=== PATIENT | female | born 1955 | race Two or more races ===

== ENCOUNTER 2017-08-23 07:25 | Inpatient (IN) | payer MEDICARE, OTHER ==
[~2017-08-23] VITALS: Ht 142.2 cm; Wt 58.5 kg
[2017-08-23 08:44] LABS: Urine Bacteria FEW /hpf (None Seen); Urine Blood Negative /uL (Negative); Urine Mucus FEW (None Seen); Urine Specific Gravity 1.022 (1.001-1.035); Urine WBC 4 /hpf (0 - 5)
[2017-08-23] MEDS ORDERED: MORPHINE SULFATE 10 MG/ML INJ 1ML SDV IV ONE (09:30)
[2017-08-23] MEDS ORDERED: ONDANSETRON HCL 4 MG/2 ML VIAL IV ONE (09:30)
[2017-08-23 09:50] LABS: Basophils # (auto) 0 uL; Hemoglobin 14.4 g/dL (12.2-16.2); Neutrophils # (auto) 7.4 uL; Red Cell Distribution Width 12.8 % (11.8-14.3)
[2017-08-23 09:52] LABS: Basophils % (auto) 0.3 % (0.0-2.0); Eosinophils # (auto) 0.1 uL; Eosinophils % (auto) 0.6 % (0.0-7.0); Hematocrit 41.7 % (36.0-46.0); Lymphocytes # (auto) 1.3 uL; Lymphocytes % (auto) 14.3 % (10.0-50.0); Mean Corpuscular Hemoglobin 34.3 pg (28.0-32.0); Mean Corpuscular Hgb Conc. 34.6 g/dL (32.0-36.0); Monocytes # (auto) 0.4 uL; Monocytes % (auto) 3.9 % (0.0-12.0); Neutrophils % (auto) 80.9 % (37.0-80.0); Platelet Count (auto) 339 10^3/uL (140-450); Red Blood Cells 4.21 10^6/uL (4.0-5.20); White Blood Cell 9.1 10^3/uL (4.4-10.8)
[2017-08-23 10:11] LABS: BUN/Creatinine Ratio 14.9; Bilirubin, Total 0.9 mg/dL (0.2-1.0); Calcium 8.8 mg/dL (8.5-10.1); Potassium 3.7 mmol/L (3.5-5.1); Total Protein 7.5 g/dL (6.4-8.2)
[2017-08-23] MEDS ORDERED: PIPERACILLIN-TAZOB 3.375GM 50 ML IV ONE (10:15)
[2017-08-23] MEDS ORDERED: CLINDAMYCIN 600MG IV 50 ML IV ONE (10:15)
[2017-08-23] MEDS: SODIUM CHLORIDE 0.9% 1,000 ML IV SCH ×2 (13:48→23:30)
[2017-08-23] MEDS ORDERED: ACETAMINOPHEN 325 MG TAB PO PRN (14:00)
[2017-08-23] MEDS ORDERED: DEXTROSE (50%) 50ML SYRG IV PRN (14:00)
[2017-08-23] MEDS ORDERED: TEMAZEPAM 15 MG CAP PO PRN (14:00)
[2017-08-23] MEDS: FAMOTIDINE 20 MG TAB PO SCH ×2 (14:59→21:38)
[2017-08-23] MEDS: metroNIDAZOLE 500MG/100ML 100 ML IV SCH ×2 (14:59→21:38)
[2017-08-23] MEDS: ONDANSETRON HCL 4 MG/2 ML VIAL IV PRN ×2 (16:19→22:24)
[2017-08-23] MEDS: MORPHINE SULFATE 10 MG/ML INJ 1ML SDV IV PRN ×2 (16:20→22:21)
[2017-08-23 17:00] VITALS: BP 111/69
[2017-08-23] MEDS: PIPERACILLIN-TAZOB 3.375GM 50 ML IV SCH ×2 (17:07→23:30)
[2017-08-23] MEDS: InsuLIN REG 1unit/0.01ml Soln (100units/ml) SC SCH ×2 (17:41→22:00)
[2017-08-23] MEDS: ACCU-CHEK COMFORT CURVE STRIP VI SCH ×2 (17:41→22:33)
[2017-08-23 21:26] VITALS: BP 96/56
[2017-08-24 05:06] VITALS: BP 96/56
[2017-08-24] MEDS: PIPERACILLIN-TAZOB 3.375GM 50 ML IV SCH ×2 (05:14→11:14)
[2017-08-24] MEDS: ONDANSETRON HCL 4 MG/2 ML VIAL IV PRN ×2 (06:20→13:44)
[2017-08-24] MEDS: metroNIDAZOLE 500MG/100ML 100 ML IV SCH ×3 (06:20→22:28)
[2017-08-24] MEDS: MORPHINE SULFATE 10 MG/ML INJ 1ML SDV IV PRN (06:21)
[2017-08-24] MEDS: SODIUM CHLORIDE 0.9% 1,000 ML IV SCH (06:21)
[2017-08-24 06:22] VITALS: BP 124/70
[2017-08-24] MEDS: ACCU-CHEK COMFORT CURVE STRIP VI SCH ×2 (06:28→11:45)
[2017-08-24] MEDS: InsuLIN REG 1unit/0.01ml Soln (100units/ml) SC SCH ×2 (06:28→11:30)
[2017-08-24] MEDS: MULTIPLE VITAMIN TAB PO SCH (08:52)
[2017-08-24] MEDS: FAMOTIDINE 20 MG TAB PO SCH ×2 (08:52→22:28)
[2017-08-24 09:00] VITALS: BP 96/55
[2017-08-24 09:26] LABS: Basophils # (auto) 0 uL; Basophils % (auto) 0.4 % (0.0-2.0); Eosinophils # (auto) 0.1 uL; Eosinophils % (auto) 1.3 % (0.0-7.0); Hemoglobin 13.3 g/dL (12.2-16.2); Lymphocytes # (auto) 1.3 uL; Lymphocytes % (auto) 20.3 % (10.0-50.0); Mean Corpuscular Hgb Conc. 34.2 g/dL (32.0-36.0); Mean Corpuscular Volume 99.6 fL (80.0-100.0); Monocytes # (auto) 0.4 uL; Monocytes % (auto) 5.8 % (0.0-12.0); Neutrophils # (auto) 4.8 uL; Neutrophils % (auto) 72.2 % (37.0-80.0); Platelet Count (auto) 311 10^3/uL (140-450); Red Blood Cells 3.91 10^6/uL (4.0-5.20); Red Cell Distribution Width 12.7 % (11.8-14.3); White Blood Cell 6.6 10^3/uL (4.4-10.8)
[2017-08-24 09:44] LABS: Albumin 3.3 g/dL (3.4-5.0); BUN/Creatinine Ratio 10.3; Calcium 8.2 mg/dL (8.5-10.1); Potassium 3.5 mmol/L (3.5-5.1)
[2017-08-24 09:47] LABS: Total Protein 6.3 g/dL (6.4-8.2)
[2017-08-24 13:00] VITALS: BP 107/60
[2017-08-24] MEDS: SOD CHL 0.9%/ KCL 20MEQ 1,000 ML IV SCH (14:24)
[2017-08-24 17:00] VITALS: BP 98/58
[2017-08-24] MEDS: HYDROcodone-ACET 5/325MG TAB PO PRN (21:09)
[2017-08-24 22:00] VITALS: BP 133/72
[2017-08-25] MEDS: SOD CHL 0.9%/ KCL 20MEQ 1,000 ML IV SCH ×3 (03:24→23:06)
[2017-08-25 05:00] VITALS: BP 105/59
[2017-08-25] MEDS: metroNIDAZOLE 500MG/100ML 100 ML IV SCH ×3 (05:32→21:43)
[2017-08-25] MEDS: HYDROcodone-ACET 5/325MG TAB PO PRN ×4 (05:37→21:42)
[2017-08-25 06:53] LABS: Basophils # (auto) 0 uL; Basophils % (auto) 0.4 % (0.0-2.0); Eosinophils # (auto) 0.1 uL; Eosinophils % (auto) 2.1 % (0.0-7.0); Hemoglobin 13.7 g/dL (12.2-16.2); Lymphocytes # (auto) 1.6 uL; Mean Corpuscular Hemoglobin 34.4 pg (28.0-32.0); Monocytes # (auto) 0.5 uL; Red Blood Cells 3.98 10^6/uL (4.0-5.20)
[2017-08-25 07:02] LABS: Hematocrit 39.9 % (36.0-46.0); Lymphocytes % (auto) 22.2 % (10.0-50.0); Mean Corpuscular Hgb Conc. 34.3 g/dL (32.0-36.0); Mean Corpuscular Volume 100.3 fL (80.0-100.0); Monocytes % (auto) 7.1 % (0.0-12.0); Neutrophils # (auto) 4.9 uL; Neutrophils % (auto) 68.2 % (37.0-80.0); Nucleated Red Blood Cells % 0.1 %; Platelet Count (auto) 320 10^3/uL (140-450); Red Cell Distribution Width 12.9 % (11.8-14.3); White Blood Cell 7.2 10^3/uL (4.4-10.8)
[2017-08-25 07:04] LABS: BUN/Creatinine Ratio 8.3; Calcium 8.2 mg/dL (8.5-10.1); Potassium 3.6 mmol/L (3.5-5.1)
[2017-08-25 09:00] VITALS: BP 98/60
[2017-08-25] MEDS: cefTRIAXone 1GM/10ml IVPUSH 10 ML IV SCH (10:59)
[2017-08-25] MEDS: MULTIPLE VITAMIN TAB PO SCH (10:59)
[2017-08-25] MEDS: ONDANSETRON HCL 4 MG/2 ML VIAL IV PRN ×2 (11:00→21:42)
[2017-08-25] MEDS: FAMOTIDINE 20 MG TAB PO SCH ×2 (11:00→21:42)
[2017-08-25 13:00] VITALS: BP 124/71
[2017-08-25 17:00] VITALS: BP 128/73
[2017-08-25 22:00] VITALS: BP 140/80
[2017-08-26] MEDS: ONDANSETRON HCL 4 MG/2 ML VIAL IV PRN ×4 (04:16→21:36)
[2017-08-26] MEDS: HYDROcodone-ACET 5/325MG TAB PO PRN ×4 (04:19→21:36)
[2017-08-26 05:00] VITALS: BP 138/65
[2017-08-26] MEDS: metroNIDAZOLE 500MG/100ML 100 ML IV SCH ×3 (05:57→20:52)
[2017-08-26 09:00] VITALS: BP 122/74
[2017-08-26] MEDS: SOD CHL 0.45% WITH 20MEQ KCL 1,000 ML IV SCH ×2 (09:30→19:20)
[2017-08-26] MEDS: cefTRIAXone 1GM/10ml IVPUSH 10 ML IV SCH (09:30)
[2017-08-26] MEDS: MULTIPLE VITAMIN TAB PO SCH (09:53)
[2017-08-26] MEDS: FAMOTIDINE 20 MG TAB PO SCH ×2 (09:53→20:52)
[2017-08-26 13:00] VITALS: BP 107/64
[2017-08-26 17:00] VITALS: BP 126/76
[2017-08-26 21:30] VITALS: BP 116/70
[2017-08-26] MEDS: DOCUSATE SOD 100 MG CAP PO SCH (22:35)
[2017-08-26] MEDS: MORPHINE SULFATE 10 MG/ML INJ 1ML SDV IV PRN (22:35)
[2017-08-27 05:00] VITALS: BP 115/67
[2017-08-27] MEDS: metroNIDAZOLE 500MG/100ML 100 ML IV SCH ×3 (05:00→22:00)
[2017-08-27] MEDS: SOD CHL 0.45% WITH 20MEQ KCL 1,000 ML IV SCH ×2 (05:01→15:30)
[2017-08-27] MEDS: ONDANSETRON HCL 4 MG/2 ML VIAL IV PRN ×4 (05:02→22:37)
[2017-08-27] MEDS: MORPHINE SULFATE 10 MG/ML INJ 1ML SDV IV PRN ×4 (06:22→22:34)
[2017-08-27 09:00] VITALS: BP_SYST 113; BP_SYST 132; BP_DIAS 68; BP_DIAS 78
[2017-08-27] MEDS: cefTRIAXone 1GM/10ml IVPUSH 10 ML IV SCH (09:32)
[2017-08-27] MEDS ORDERED: IOHEXOL 300 MG/ML 100ML BOTTLE IJ ONE (09:52)
[2017-08-27] MEDS: FAMOTIDINE 20 MG TAB PO SCH ×2 (11:05→22:00)
[2017-08-27] MEDS: DOCUSATE SOD 100 MG CAP PO SCH ×2 (11:05→22:01)
[2017-08-27] MEDS: MULTIPLE VITAMIN TAB PO SCH (11:05)
[2017-08-27 12:38] LABS: Basophils # (auto) 0 uL; Eosinophils # (auto) 0 uL; Monocytes # (auto) 0.4 uL; Monocytes % (auto) 4.5 % (0.0-12.0); White Blood Cell 9.9 10^3/uL (4.4-10.8)
[2017-08-27 12:40] LABS: Basophils % (auto) 0.3 % (0.0-2.0); Eosinophils % (auto) 0.5 % (0.0-7.0); Hematocrit 43.8 % (36.0-46.0); Hemoglobin 14.8 g/dL (12.2-16.2); Lymphocytes # (auto) 0.9 uL; Lymphocytes % (auto) 9.3 % (10.0-50.0); Mean Corpuscular Hemoglobin 33.7 pg (28.0-32.0); Mean Corpuscular Hgb Conc. 33.7 g/dL (32.0-36.0); Neutrophils # (auto) 8.5 uL; Neutrophils % (auto) 85.4 % (37.0-80.0); Nucleated Red Blood Cells % 0.1 %; Platelet Count (auto) 363 10^3/uL (140-450); Red Blood Cells 4.38 10^6/uL (4.0-5.20); Red Cell Distribution Width 12.9 % (11.8-14.3)
[2017-08-27 12:47] LABS: BUN/Creatinine Ratio 8.5; Calcium 8.7 mg/dL (8.5-10.1); Potassium 3.9 mmol/L (3.5-5.1)
[2017-08-27] MEDS ORDERED: GASTROGRAFIN 120 ML SOL ONE (15:45)
[2017-08-27 16:59] VITALS: BP 121/67
[2017-08-27 22:00] VITALS: BP 110/62
[2017-08-28] MEDS: SOD CHL 0.45% WITH 20MEQ KCL 1,000 ML IV SCH ×2 (02:18→11:10)
[2017-08-28 05:00] VITALS: BP 128/68
[2017-08-28] MEDS: metroNIDAZOLE 500MG/100ML 100 ML IV SCH ×3 (06:06→21:38)
[2017-08-28] MEDS: MORPHINE SULFATE 10 MG/ML INJ 1ML SDV IV PRN ×3 (06:07→17:00)
[2017-08-28] MEDS: ONDANSETRON HCL 4 MG/2 ML VIAL IV PRN ×2 (06:07→16:17)
[2017-08-28 09:00] VITALS: BP 123/83
[2017-08-28] MEDS: cefTRIAXone 1GM/10ml IVPUSH 10 ML IV SCH (09:28)
[2017-08-28] MEDS: FAMOTIDINE 20 MG TAB PO SCH (10:00)
[2017-08-28] MEDS: MULTIPLE VITAMIN TAB PO SCH (10:00)
[2017-08-28] MEDS: DOCUSATE SOD 100 MG CAP PO SCH (10:00)
[2017-08-28 13:00] VITALS: BP 103/52
[2017-08-28 16:39] VITALS: BP 116/73
[2017-08-28] MEDS: SOD CHL 0.9%/ KCL 20MEQ 1,000 ML IV SCH (17:21)
[2017-08-28] MEDS: MORPHINE SULF INJ 2 MG/ML SYRINGE 1ML ONE ×2 (21:59→22:04)
[2017-08-28] MEDS ORDERED: MORPHINE SULF INJ 2 MG/ML SYRINGE 1ML IV ONE (22:01)
[2017-08-28 22:08] VITALS: BP 125/68
[2017-08-29] MEDS: SOD CHL 0.9%/ KCL 20MEQ 1,000 ML IV SCH ×2 (01:50→11:51)
[2017-08-29] MEDS: MORPHINE SULF INJ 2 MG/ML SYRINGE 1ML ONE ×2 (02:28→02:36)
[2017-08-29] MEDS: ONDANSETRON HCL 4 MG/2 ML VIAL IV PRN (02:36)
[2017-08-29 05:22] VITALS: BP 119/55
[2017-08-29 05:56] LABS: Basophils # (auto) 0 uL; Eosinophils # (auto) 0.1 uL; Hemoglobin 13.2 g/dL (12.2-16.2); Lymphocytes # (auto) 1.1 uL; Mean Corpuscular Volume 100.6 fL (80.0-100.0); Monocytes # (auto) 0.5 uL
[2017-08-29 05:58] LABS: Basophils % (auto) 0.4 % (0.0-2.0); Eosinophils % (auto) 1.5 % (0.0-7.0); Hematocrit 38.5 % (36.0-46.0); Lymphocytes % (auto) 13.1 % (10.0-50.0); Mean Corpuscular Hemoglobin 34.6 pg (28.0-32.0); Mean Corpuscular Hgb Conc. 34.4 g/dL (32.0-36.0); Monocytes % (auto) 6.3 % (0.0-12.0); Neutrophils # (auto) 6.6 uL; Neutrophils % (auto) 78.7 % (37.0-80.0); Platelet Count (auto) 343 10^3/uL (140-450); Red Blood Cells 3.83 10^6/uL (4.0-5.20); Red Cell Distribution Width 13.2 % (11.8-14.3); White Blood Cell 8.4 10^3/uL (4.4-10.8)
[2017-08-29 06:16] LABS: BUN/Creatinine Ratio 13.7; Calcium 7.7 mg/dL (8.5-10.1)
[2017-08-29] MEDS: metroNIDAZOLE 500MG/100ML 100 ML IV SCH ×2 (06:20→13:43)
[2017-08-29 08:00] VITALS: BP 113/70
[2017-08-29] MEDS: cefTRIAXone 1GM/10ml IVPUSH 10 ML IV SCH (09:12)
[2017-08-29] MEDS ORDERED: PANTOPRAZOLE 40 MG/10 ML VIAL IV SCH (10:00)
[2017-08-29] MEDS ORDERED: METR500T PO (12:56)
[2017-08-29] MEDS ORDERED: PROM25TA5 PO (12:56)
[2017-08-29] MEDS ORDERED: CIPR-173 PO (12:56)
== END 2017-08-29 14:30 | disposition home or self-care (01) | DRG 389 ==
LOC: ER 07:25 → OVERFLOW 07:26 → WEST WING 15:23
PROVIDERS: ADMIT Internal Medicine; ATTEND Internal Medicine
DX: K56.600 Partial intestinal obstruction, unspecified as to cause (principal); N39.0 Urinary tract infection, site not specified; K76.0 Fatty (change of) liver, not elsewhere classified; K57.32 Diverticulitis of large intestine without perforation or abscess without bleeding; E86.0 Dehydration; E11.9 Type 2 diabetes mellitus without complications; K57.30 Diverticulosis of large intestine without perforation or abscess without bleeding
CPT/HCPCS: 36415; 71045; 74176; 74177; 74250; 80048; 80053; 81001; 82150; 82962; 83036; 83605; 83690; 85025; 87040; 87045; 87086; 87493; 87899; 93005; 96365; 96366; 96368; 96375; C9113; J2405; J2543; J3490